=== PATIENT | male | born 1985 | race Caucasian/White ===

== ENCOUNTER 2016-10-29 11:05 | Emergency (ER) | payer OTHER ==
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
[2016-10-29] MEDS ORDERED: NO MEDICATIONS (11:17)
== END 2016-10-29 13:14 | disposition home or self-care (01) ==
LOC: SED 11:05
DX: S16.1XXA Strain of muscle, fascia and tendon at neck level, initial encounter (principal); S39.012A Strain of muscle, fascia and tendon of lower back, initial encounter; S20.219A Contusion of unspecified front wall of thorax, initial encounter; F17.200 Nicotine dependence, unspecified, uncomplicated; V43.62XA Car passenger injured in collision with other type car in traffic accident, initial encounter; Y92.410 Unspecified street and highway as the place of occurrence of the external cause
CPT/HCPCS: 71020; 72040; 72100; 96372; 99283; J1885